=== PATIENT | male | born 1960 | race African-American/Black ===

== ENCOUNTER 2020-10-24 17:49 | Emergency (ER) | payer BC, SELFPAY ==
--- NOTE | ~2020-10-24 | XR_ITS ---
EXAMINATION: XR ankle LT min 3V DATE: 10/24/2020 18:06 INDICATION: Left ankle injury and pain. TECHNIQUE: 4 views of left ankle were obtained. COMPARISON: None. FINDINGS: Bone alignment is normal. No fracture. There is heterotopic ossification distal to medial m alleolus from old injury. There is mild midfoot osteoarthritis. 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 Ankle soft tissue swelling is noted. IMPRESSION: 1. No acute fracture. Reviewed, dictated and finalized at location A. IMPRESSION: 1. No acute fracture.
--- NOTE | ~2020-10-24 | XR_ITS ---
EXAMINATION: XR foot LT min 3V DATE: 10/24/2020 18:06 INDICATION: Left foot injury and pain. TECHNIQUE: 4 views of left foot were obtained. COMPARISON: None. FINDINGS: Bone alignment is normal. No fracture. There is mild osteoarthritis of first metatarsophala ngeal joint and some of the interphalangeal joints and midfoot joints. There are enthesophytes at the posterior and plantar aspects of calcaneal tuberosity. IMPRESSION: 1. Mild polyarticular osteoarthritis. Reviewed, dictated and finalized at location A.
[2020-10-24 17:51] VITALS: BP 168/63; PULSE 74; RESP 18; TEMP 36.9; O2SAT 98
--- NOTE | 2020-10-24 20:26 | ED.LOWEXIN ---
HPI - Extremity Injury (Lower) General Chief Complaint: Extremity Injury, Lower Stated Complaint: left ankle pain Time Seen by Provider: 10/24/20 20:20 Source: patient Mode of arrival: ambulatory Limitations: no limitations History of Present Illness HPI Narrative: 60-year-old with a history of hypertension, gout, diabetes here with complaints of left ankle pain and swelling. He states that he has gout attacks periodically. But he is not on any medication for gout. He denies any fever or chills. No history of trauma. MD complaint: other (Left ankle pain and swelling) Onset (ago): day(s) (1) Place: home Severity: moderate Relieving factors: nothing Exacerbating factors: movement Context: other (History of gout) Related Data Home Medications Medication Instructions Recorded Confirmed amlodipine 10 mg PO DAILY 04/16/19 hydrochlorothiazide 25 mg PO DAILY 04/16/19 losartan 100 mg PO DAILY 04/16/19 metoprolol succinate 100 mg PO DAILY 04/16/19 rosuvastatin 10 mg PO HS 04/16/19 Allergies Allergy/AdvReac Type Severity Reaction Status Date / Time FEDE Inhibitors Allergy Mild tongue Verified 04/16/19 12:58 swellmathew Review of Systems Review of Systems: All systems reviewed & are unremarkable except as noted in HPI and below Constitutional: Constitutional: Reports no additional constitutional complaints Eyes: Eyes: Reports no additional eye complaints ENT: Reports system reviewed and no additional complaints, except as documented Cardiovascular: Cardiovascular: Reports no additional cardiovascular complaints Respiratory: Respiratory: Reports no additional respiratory complaints Gastrointestinal: Gastrointestinal: Reports no additional gastrointestinal complaints Musculoskeletal: Musculoskeletal: Reports as per HPI Neurologic: Reports system reviewed and no additional complaints, except as documented [facility] Past Medical History Medical History Obesity Social History Social History Smoking status: Former smoker Gender identity (if verbalized by the patient): Male Exam Narrative: GENERAL: Well-appearing, obese, and in no acute distress. HEAD: Normocephalic, atraumatic. EYES: PERRLA and EOMI. NECK: Supple. CHEST: Clear to auscultation. No respiratory distress. HEART: Regular rate and rhythm. No murmur heard. Normal peripheral pulses.. EXTREMITIES: Normal range of motion. Examination of the left ankle shows mild soft tissue swelling but no deformity. SKIN: Warm, dry, no rash. NEURO: No focal deficits. Alert and oriented x3. PSYCH: Normal mood and affect. Course Course Emergency Course: Inform patient about his x-ray findings. Advised him to take medication as prescribed and also recommended him to follow-up with his primary doctor for gout. Vital Signs Vital signs: Vital Signs Temperature 36.9 C 10/24/20 17:51 Pulse Rate 74 10/24/20 17:51 Respiratory Rate 18 10/24/20 17:51 Blood Pressure 168/63 H 10/24/20 17:51 Pulse Oximetry 98 10/24/20 17:51 Temperature 36.9 C 10/24/20 17:51 Pulse Rate 74 10/24/20 17:51 Respiratory Rate 18 10/24/20 17:51 Blood Pressure 168/63 H 10/24/20 17:51 Pulse Oximetry 98 10/24/20 17:51 Discharge Plan Discharge Clinical Impression: Gout attack Patient Disposition: Home, Self-Care Condition: Stable Instructions: Antibiotic Form, Gout (ED) Prescriptions: New prednisone 20 mg tablet 20 mg PO BID Qty: 14 RF: 0 tramadol [Ultram] 50 mg tablet 50 mg PO Q6H PRN (Reason: pain) Qty: 20 RF: 0 No Action metoprolol succinate 100 mg tablet extended release 24 hr 100 mg PO DAILY RF: 0 amlodipine 10 mg tablet 10 mg PO DAILY RF: 0 hydrochlorothiazide 25 mg tablet 25 mg PO DAILY RF: 0 losartan 100 mg tablet 100 mg PO DAILY RF: 0 rosuvastatin 10 mg tablet 10 mg PO HS RF: 0
[2020-10-24 20:45] VITALS: BP 129/60; PULSE 63; RESP 16; TEMP 36.8; O2SAT 98
[2020-10-24] MEDS: HYDROcodone/acetaminophen (*CRX) 5-325 MG TABLET 1 TAB PO (21:36)
[2020-10-24 21:40] VITALS: BP 154/79; PULSE 67; RESP 18; O2SAT 99
== END 2020-10-24 21:43 | disposition home or self-care (01) ==
PROVIDERS: Emergency Provider Family Medicine
DX: M10.9 Gout, unspecified (principal); E11.9 Type 2 diabetes mellitus without complications; I10 Essential (primary) hypertension; E66.9 Obesity, unspecified; Z68.24 Body mass index [BMI] 24.0-24.9, adult
CPT/HCPCS: 73610; 73630; 99283; A9270

== ENCOUNTER 2021-03-08 21:51 | Emergency (ER) | payer BC, SELFPAY ==
--- NOTE | ~2021-03-08 | CT_ITS ---
EXAMINATION: CT cervical spine wo con DATE: 03/09/2021 00:07 INDICATION: Neck pain. Head injury. TECHNIQUE: Computed tomography (CT) of the cervical spine was performed without intravenous contrast. Automated exposure control and iterative reconstruction technique were employed. The dose-length pro duct was 510.65 mGy-cm. COMPARISON: CT cervical spine 04/16/2019 FINDINGS: There is kyphosis of cervical spine. Vertebral body heights are normal. There is severely d ecreased disc height at C6-C7 with endplate remodeling. The following disc levels are specifically di scussed: C2-C3: There is no uncovertebral joint osteoarthritis. There is mild bilateral facet joint osteoarthr itis. There is no neural foraminal stenosis. There is no central canal stenosis. C3-C4: There is mild bilateral uncovertebral joint osteoarthritis. There is no facet joint osteoarthr itis. There is mild left neural foraminal stenosis. There is no central canal stenosis. C4-C5: There is mild bilateral uncovertebral joint osteoarthritis. There is mild left facet joint ost eoarthritis. There is no neural foraminal stenosis. There is mild central canal stenosis. C5-C6: There is mild bilateral uncovertebral joint osteoarthritis. There is no facet joint osteoarthr itis. There is no neural foraminal stenosis. There is mild central canal stenosis. C6-C7: There is severe right and moderate left uncovertebral joint osteoarthritis. There is severe ri ght and moderate left facet joint osteoarthritis. There is mild bilateral neural foraminal stenosis. There is mild central canal stenosis. C7-T1: There is no uncovertebral joint osteoarthritis. There is moderate bilateral facet joint osteoa rthritis. There is no neural foraminal stenosis. There is no central canal stenosis. IMPRESSION: 1. No fracture. 2. Severe cervical spondylosis. 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
--- NOTE | ~2021-03-08 | CT_ITS ---
EXAMINATION: CT brain wo con DATE: 03/09/2021 00:06 INDICATION: Head injury. TECHNIQUE: Computed tomography (CT) of the head was performed without intravenous contrast. The mA wa s adjusted according to patient size. Iterative reconstruction technique was employed. The dose-lengt h product was 681.00 mGy-cm. COMPARISON: None FINDINGS: There is no intracranial hemorrhage, acute infarction, or abnormal intracranial mass lesion . The ventricles are normal in size. There are likely changes of left ocular lens replacement surgery . There is mild mucosal thickening in the paranasal sinuses. The mastoid air cells are normal. There is a right superior scalp hematoma. IMPRESSION: 1. Normal brain. Reviewed, dictated and finalized at location A. ER [employer]AVE [employer]ARD IMPRESSION: 1. Normal brain.
--- NOTE | ~2021-03-08 | XR_ITS ---
XR lumbar spine 2-3V DATE: 03/08/2021 23:56 INDICATION: Injury today, mid to lower back pain. TECHNIQUE: AP, lateral, coned lateral lumbosacral views COMPARISON: None FINDINGS: Very prominent bridging osteophytes are noted in the lower thoracic and lumbar spine. The included lower thoracic and lumbar pedicles are intact. No fracture or bone destruction is eviden t. The sacroiliac joints are intact. There is a chronic multiseptate lucent up to 2.8 x 5 cm lesion of the inferomedial left iliac bone ex tending into the medial roof of the left acetabulum, with surrounding sclerosis and cortical thickeni ng, most likely benign. 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
[2021-03-08 22:24] VITALS: BP 162/62; PULSE 75; RESP 16; TEMP 37.1; O2SAT 98
[2021-03-09 00:23] VITALS: BP 167/83; PULSE 68; RESP 16; O2SAT 96
--- NOTE | 2021-03-09 01:40 | ED.GENADULT ---
HPI - General Adult General Chief complaint: Head Injury Stated complaint: head injury Time Seen by Provider: 03/08/21 23:15 History of Present Illness HPI narrative: Patient 60-year-old gentleman who presents the emergency department chief complaint of head injury and neck pain. Patient reports that he was opening the back of his truck and a box fell out struck him in the head patient reports he had no loss of consciousness reports pain in the left lateral aspect of his neck. The patient states pain is worse with movement and improved with rest. Patient reports that he has had a continual headache since then. Patient also reports he had pain in his lumbar region after the injury. Related Data Home Medications Medication Instructions Recorded Confirmed amlodipine 10 mg PO DAILY 04/16/19 hydrochlorothiazide 25 mg PO DAILY 04/16/19 losartan 100 mg PO DAILY 04/16/19 metoprolol succinate 100 mg PO DAILY 04/16/19 rosuvastatin 10 mg PO HS 04/16/19 Allergies Allergy/AdvReac Type Severity Reaction Status Date / Time FEDE Inhibitors Allergy Mild tongue Verified 03/09/21 00:26 [email or web address] Review of Systems Review of Systems: A 10 system review of systems was completed on the patient and is negative except for what is stated in the HPI. Nursing and ancillary documentation was reviewed. [facility] Past Medical History Medical History Obesity Social History Social History Smoking status: Former smoker Gender identity (if verbalized by the patient): Male Exam Narrative: GENERAL: Well-appearing, well-nourished, and in no acute distress. HEAD: Normocephalic, atraumatic. EYES: PERRLA and EOMI. ENT: Nares clear, no rhinorrhea or epistaxis. Mucous membranes moist. NECK: Supple. There is tenderness to palpation of the paraspinous muscles of the left neck CHEST: Clear to auscultation. No respiratory distress. HEART: Regular rate and rhythm. No murmur heard. Normal peripheral pulses. ABDOMEN: Soft, nontender, nondistended, normal active bowel sounds. EXTREMITIES: Normal range of motion. No edema. SKIN: Warm, dry, no rash. NEURO: No focal deficits. Alert and oriented x3. PSYCH: Normal mood and affect. Course Course Emergency Course: CT head shows no evidence of acute intercranial process CT cervical spine shows no evidence of fracture Lumbar spine x-ray shows no evidence of fracture Vital Signs Vital signs: Vital Signs Temperature 37.1 C 03/08/21 22:24 Pulse Rate 75 03/08/21 22:24 Respiratory Rate 16 03/08/21 22:24 Blood Pressure 162/62 H 03/08/21 22:24 Pulse Oximetry 98 03/08/21 22:24 Temperature 37.1 C 03/08/21 22:24 Pulse Rate 68 03/09/21 00:23 Respiratory Rate 16 03/09/21 00:23 Blood Pressure 167/83 H 03/09/21 00:23 Pulse Oximetry 96 03/09/21 00:23 Medical Decision Making Vital Signs Vital Signs: Vital Signs Temperature 37.1 C 03/08/21 22:24 Pulse Rate 75 03/08/21 22:24 Respiratory Rate 16 03/08/21 22:24 Blood Pressure 162/62 H 03/08/21 22:24 Pulse Oximetry 98 03/08/21 22:24 Temperature 37.1 C 03/08/21 22:24 Pulse Rate 68 03/09/21 00:23 Respiratory Rate 16 03/09/21 00:23 Blood Pressure 167/83 H 03/09/21 00:23 Pulse Oximetry 96 03/09/21 00:23 Discharge Plan Discharge Clinical Impression: Closed head injury Qualifiers: Encounter type: initial encounter Qualified Code(s): S09.90XA - Unspecified injury of head, initial encounter Cervical strain, acute Qualifiers: Encounter type: initial encounter Qualified Code(s): S16.1XXA - Strain of muscle, fascia and tendon at neck level, initial encounter Patient Disposition: Home, Self-Care Condition: Stable Instructions: Antibiotic Form, Cervical Strain (ED), Concussion (ED), Head Injury (ED) Prescriptions: New orphenadrine citrate 100 mg tablet
[2021-03-09 02:01] VITALS: BP 151/70; PULSE 67; RESP 16; O2SAT 95
== END 2021-03-09 02:03 | disposition home or self-care (01) ==
PROVIDERS: Emergency Provider Emergency Medicine
DX: S09.90XA Unspecified injury of head, initial encounter (principal); S16.1XXA Strain of muscle, fascia and tendon at neck level, initial encounter; E66.9 Obesity, unspecified; Z68.41 Body mass index [BMI] 40.0-44.9, adult; Z87.891 Personal history of nicotine dependence; W20.8XXA Other cause of strike by thrown, projected or falling object, initial encounter
CPT/HCPCS: 70450; 72100; 72125; 99284